=== PATIENT | female | born 1950 | race Two or more races ===

== ENCOUNTER 2018-10-07 18:12 | Emergency (ER) | payer OTHER, MEDICAID ==
[~2018-10-07] VITALS: Ht 172.7 cm; Wt 68.0 kg
[2018-10-07] MEDS ORDERED: SODIUM CHLORIDE 0.9% 1,000 ML IV ONE (18:44)
[2018-10-07] MEDS ORDERED: fentaNYL CITRATE 100 MCG/2 ML VL IV ONE (20:15)
[2018-10-07] MEDS ORDERED: KETOROLAC TROMETH 15 mg/ml 1ML VL IV ONE (20:15)
[2018-10-07 20:18] LABS: Basophils # (auto) 0 uL; Basophils % (auto) 0.4 % (0.0-2.0); Eosinophils # (auto) 0 uL; Eosinophils % (auto) 0.1 % (0.0-7.0); Hematocrit 35.5 % (36.0-46.0); Hemoglobin 11.9 g/dL (12.2-16.2); Lymphocytes # (auto) 1.5 uL; Lymphocytes % (auto) 12.7 % (10.0-50.0); Mean Corpuscular Hemoglobin 30.4 pg (28.0-32.0); Mean Corpuscular Hgb Conc. 33.5 g/dL (32.0-36.0); Monocytes # (auto) 0.9 uL; Monocytes % (auto) 7.7 % (0.0-12.0); Neutrophils # (auto) 9.1 uL; Neutrophils % (auto) 79.1 % (37.0-80.0); Platelet Count (auto) 361 10^3/uL (140-450); Red Cell Distribution Width 13.2 % (11.8-14.3); White Blood Cell 11.5 10^3/uL (4.4-10.8)
[2018-10-07 20:26] LABS: Albumin 3.2 g/dL (3.4-5.0); Anion Gap 10 (5-15); BUN/Creatinine Ratio 16.2; Blood Urea Nitrogen 11 mg/dL (7-18); Carbon Dioxide 22 mmol/L (21-32); Chloride 113 mmol/L (98-107); GFR African American 111 mL/min; GFR Non-African American 92 mL/min; Glucose 102 mg/dL (74-106); Magnesium 1.9 mg/dL (1.6-2.6); Potassium 3.3 mmol/L (3.5-5.1); Sodium 145 mmol/L (136-145)
[2018-10-07 20:31] LABS: Alanine Aminotransferase 20 U/L (13-56); Alkaline Phosphatase 98 U/L (45-117); Aspartate Aminotransferase 12 U/L (15-37); Bilirubin, Total 0.7 mg/dL (0.2-1.0); Creatine Kinase IFCC 159 U/L (26-192); Total Protein 6.9 g/dL (6.4-8.2)
[2018-10-07 21:12] LABS: Urine Bacteria FEW /hpf (None Seen); Urine Blood TRACE /uL (Negative); Urine Mucus FEW (None Seen); Urine Specific Gravity 1.012 (1.001-1.035); Urine WBC 32 /hpf (0 - 5)
[2018-10-07 21:21] LABS: INR 0.95 (0.9-1.15); Partial Thromboplastin Time 25.9 sec (23.64-32.05)
[2018-10-08 00:30] VITALS: BP 135/59
== END 2018-10-08 00:38 | disposition home or self-care (01) ==
LOC: EDBD 18:12 → ER 18:19
DX: E86.0 Dehydration (principal); N39.0 Urinary tract infection, site not specified; E78.5 Hyperlipidemia, unspecified; I10 Essential (primary) hypertension; Z88.5 Allergy status to narcotic agent; Z90.49 Acquired absence of other specified parts of digestive tract
CPT/HCPCS: 36415; 71045; 80053; 81001; 82550; 83735; 83874; 83880; 84484; 85025; 85379; 85610; 85730; 93005; 94761; 96361; 96374; 96375; 99284; J1885; J3010; J7030